=== PATIENT | male | born 1945 | race Hispanic/Latino ===

== ENCOUNTER 2017-08-02 08:27 | Emergency (ER) | payer MEDICARE, OTHER ==
[~2017-08-02] VITALS: Ht 167.6 cm; Wt 93.0 kg
--- OUTSIDE RECORDS SUMMARY | 2017-08-02 08:31 | XMS REPORT ---
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 Allergies, Adverse Reactions, Alerts This patient has no known allergies or adverse reactions. Medications This patient has no known medications. Results Test Description Test Time Test Comments Text Results Atomic Results Result Comments HEMOGLOBIN A1C 2016-11-29 08:20:00 HEMOGLOBIN A1C (BEAKER) (test gbsi=269) 5.4 % 4.3-6.1 CBC W/PLT COUNT & AUTO [id number] 07:43:00* Test Item Value Reference Range Comments WHITE BLOOD CELL COUNT (BEAKER) (test uklo=254) 7.0 K/ L 4.0-10.0 RED BLOOD CELL COUNT (BEAKER) (test bgak=882) 4.69 M/ L 4.20-5.80 HEMOGLOBIN (BEAKER) (test uoix=489) 15.2 GM/DL 13.0-16.8 HEMATOCRIT (BEAKER) (test nyar=607) 44.2 % 40.0-50.0 MEAN CORPUSCULAR VOLUME (BEAKER) (test auiw=943) 94.2 fL 82.0-98.0 MEAN CORPUSCULAR HEMOGLOBIN (BEAKER) (test uuwz=768) 32.3 pg 27.0-33.0 MEAN CORPUSCULAR HEMOGLOBIN CONC (BEAKER) (test xvry=181) 34.3 GM/DL 32.0- 36.0 RED CELL DISTRIBUTION WIDTH (BEAKER) (test yebh=992) 13.9 % 10.3-14.2 PLATELET COUNT (BEAKER) (test gnmg=631) 191 K/CU MM 150-430 MEAN PLATELET VOLUME (BEAKER) (test vwrq=091) 7.7 fL 6.5-10.5 NUCLEATED RED BLOOD CELLS (BEAKER) (test lstp=409) 0 /100 WBC 0-0 NEUTROPHILS RELATIVE PERCENT (BEAKER) (test gkxu=366) 57 % LYMPHOCYTES RELATIVE PERCENT (BEAKER) (test cmom=676) 28 % MONOCYTES RELATIVE PERCENT (BEAKER) (test exyg=459) 8 % EOSINOPHILS RELATIVE PERCENT (BEAKER) (test wlat=902) 6 % BASOPHILS RELATIVE PERCENT (BEAKER) (test njwz=196) 1 % NEUTROPHILS ABSOLUTE COUNT (BEAKER) (test cqlk=162) 3.97 K/ L 1.80-8.00 LYMPHOCYTES ABSOLUTE COUNT (BEAKER) (test zrts=527) 1.99 K/ L 1.48-4.50 MONOCYTES ABSOLUTE COUNT (BEAKER) (test htws=517) 0.58 K/ L 0.00-1.30 EOSINOPHILS ABSOLUTE COUNT (BEAKER) (test fupv=955) 0.39 K/ L 0.00-0.50 BASOPHILS ABSOLUTE COUNT (BEAKER) (test xauf=026) 0.07 K/ L 0.00-0.20 0.00CREATINE KINASE (CK), TOTAL AND [id number] 07:28:00* Test Item Value Reference Range Comments CREATINE KINASE TOTAL (BEAKER) (test wopa=551) 90 U/L 29-200 CREATINE KINASE-MB (BEAKER) (test narm=076) 1.5 ng/mL 0.0-6.6 CREATINE KINASE-MB INDEX (BEAKER) (test batu=864) 1.7 % Effective 04/11/2014: CK-MB Reference Range ChangeNew: 0.0-6.6 Previous: 0.0- 4.9CK-MB Reference Range:<6.7 Normal6.7-10.0 Borderline>10.0 AbnormalBASIC METABOLIC [id number] 07:27:00* Test Item Value Reference Range Comments SODIUM (BEAKER) (test xucq=860) 137 meq/L 136-145 POTASSIUM (BEAKER) (test buon=726) 3.7 meq/L 3.5-5.1 CHLORIDE (BEAKER) (test cjll=079) 107 meq/L 98-107 CO2 (BEAKER) (test dpyj=892) 25 meq/L 22-29 BLOOD UREA NITROGEN (BEAKER) (test wkzr=668) 14 mg/dL 7-21 CREATININE (BEAKER) (test vvxr=230) 0.75 mg/dL 0.57-1.25 GLUCOSE RANDOM (BEAKER) (test tdvo=942) 79 mg/dL 70-105 CALCIUM (BEAKER) (test abrl=799) 8.9 mg/dL 8.4-10.2 EGFR (BEAKER) (test nvcz=2066) mL/min/1.73 sq m INSUFFICIENT CLINICAL DATA TO CALCULATE ESTIMATED GFR. [id number] 07:25:00* Test Item Value Reference Range Comments PHOSPHORUS (BEAKER) (test wmrd=236) 3.1 mg/dL 2.3-4.7 [id number] 07:25:00* Test Item Value Reference Range Comments MAGNESIUM (BEAKER) (test jxdg=120) 2.2 mg/dL 1.6-2.6 LIPID [id number] 07:25:00* Test Item Value Reference Range Comments TRIGLYCERIDES (BEAKER) (test fhje=161) 120 mg/dL CHOLESTEROL (BEAKER) (test chtw=117) 156 mg/dL HDL CHOLESTEROL (BEAKER) (test snvz=672) 38 mg/dL LDL CHOLESTEROL CALCULATED (BEAKER) (test dete=568) 94 mg/dL Triglyceride Reference Range: Low Risk <150 Borderline 150-199 High Risk 200-499 Very High Risk >=500Cholesterol Reference Range: Low Risk <200 Borderline 200-239 High Risk >240HDL Cholesterol Reference Range: Low Risk >=60 High Risk <40LDL Cholesterol Reference Range: Optimal <100 Near Optimal 100-129 Borderline 130-159 High 160-189 Very High >=190 CREATINE KINASE (CK), TOTAL AND [id number] 01:12:00* Test Item Value Reference Range Comments CREATINE KINASE TOTAL (BEAKER) (test xwde=160) 88 U/L 29-200 CREATINE KINASE-MB (BEAKER) (test subn=897) 1.4 ng/mL 0.0-6.6 CREATINE KINASE-MB INDEX (BEAKER) (test qvrc=611) 1.6 % Effective 04/11/2014: CK-MB Reference Range ChangeNew: 0.0-6.6 Previous: 0.0- 4.9CK-MB Reference Range:<6.7 Normal6.7-10.0 Borderline>10.0 AbnormalTROPONIN [id number] 01:12:00* Test Item Value Reference Range Comments TROPONIN I (BEAKER) (test tgst=902) < ng/mL 0.00-0.03 Effective 04/11/2014: Reference Range ChangeNew: 0.00-0.03 Previous 0.00- 0.15Troponin I (TnI) levels must be interpreted in the context of the presenting symptoms and the clinical findings. Elevated TnI levels indicate myocardial damage, but are not specific for ischemic heart disease. Elevated TnI levels are seen in patients with other cardiac conditions (including myocarditis and congestive heart failure), and slight TnI elevations occur in patients with other conditions, including sepsis, renal failure, acidosis, acute neurological disease, and persistent tachyarrhythmia.CREATINE KINASE (CK) , TOTAL AND [id number] 19:27:00* Test Item Value Reference Range Comments CREATINE KINASE TOTAL (MILAKER) (test rxfh=715) 114 U/L 29-200 CREATINE KINASE-MB (BEAKER) (test sczu=728) 1.5 ng/mL 0.0-6.6 CREATINE KINASE-MB INDEX (AYANNA) (test xxru=367) 1.3 % Effective 04/11/2014: CK-MB Reference Range ChangeNew: 0.0-6.6 Previous: 0.0- 4.9CK-MB Reference Range:<6.7 Normal6.7-10.0 Borderline>10.0 AbnormalTROPONIN [id number] 19:27:00* Test Item Value Reference Range Comments TROPONIN I (AYANNA) (test xjfz=109) < ng/mL 0.00-0.03 Effective 04/11/2014: Reference Range ChangeNew: 0.00-0.03 Previous 0.00- 0.15Troponin I (TnI) levels must be interpreted in the context of the presenting symptoms and the clinical findings. Elevated TnI levels indicate myocardial damage, but are not specific for ischemic heart disease. Elevated TnI levels are seen in patients with other cardiac conditions (including myocarditis and congestive heart failure), and slight TnI elevations occur in patients with other conditions, including sepsis, renal failure, acidosis, acute neurological disease, and persistent tachyarrhythmia.CREATINE KINASE (CK) , TOTAL AND [id number] 15:35:00* Test Item Value Reference Range Comments CREATINE KINASE TOTAL (BEAKER) (test asti=606) 95 U/L 29-200 CREATINE KINASE-MB (BEAKER) (test osgf=431) 1.4 ng/mL 0.0-6.6 CREATINE KINASE-MB INDEX (BEAKER) (test dnxx=815) 1.5 % Effective 04/11/2014: CK-MB Reference Range ChangeNew: 0.0-6.6 Previous: 0.0- 4.9CK-MB Reference Range:<6.7 Normal6.7-10.0 Borderline>10.0 AbnormalTROPONIN [id number] 15:35:00* Test Item Value Reference Range Comments TROPONIN I (BEAKER) (test wlek=672) < ng/mL 0.00-0.03 Effective 04/11/2014: Reference Range ChangeNew: 0.00-0.03 Previous 0.00- 0.15Troponin I (TnI) levels must be interpreted in the context of the presenting symptoms and the clinical findings. Elevated TnI levels indicate myocardial damage, but are not specific for ischemic heart disease. Elevated TnI levels are seen in patients with other cardiac conditions (including myocarditis and congestive heart failure), and slight TnI elevations occur in patients with other conditions, including sepsis, renal failure, acidosis, acute neurological disease, and persistent tachyarrhythmia.B-TYPE NATRIURETIC FACTOR (BNP)2016-11-28 15:34:00* Test Item Value Reference Range Comments B-TYPE NATRIURETIC PEPTIDE (BEAKER) (test rydb=193) 141 pg/mL 0-100 BASIC METABOLIC [id number] 15:29:00* Test Item Value Reference Range Comments SODIUM (BEAKER) (test efcz=936) 141 meq/L 136-145 POTASSIUM (BEAKER) (test qlgx=342) 4.0 meq/L 3.5-5.1 CHLORIDE (BEAKER) (test wvam=280) 110 meq/L 98-107 CO2 (BEAKER) (test drtw=654) 25 meq/L 22-29 BLOOD UREA NITROGEN (BEAKER) (test qzgp=040) 15 mg/dL 7-21 CREATININE (BEAKER) (test iuxy=198) 0.79 mg/dL 0.57-1.25 GLUCOSE RANDOM (BEAKER) (test pfur=854) 90 mg/dL 70-105 CALCIUM (BEAKER) (test dzmd=424) 9.0 mg/dL 8.4-10.2 EGFR (BEAKER) (test xlvj=6238) mL/min/1.73 sq m INSUFFICIENT CLINICAL DATA TO CALCULATE ESTIMATED GFR. [id number] 15:28:00* Test Item Value Reference Range Comments MAGNESIUM (BEAKER) (test ozzw=089) 2.2 mg/dL 1.6-2.6 CBC W/PLT COUNT & AUTO [id number] 14:43:00* Test Item Value Reference Range Comments WHITE BLOOD CELL COUNT (BEAKER) (test itpa=063) 8.2 K/ L 4.0-10.0 RED BLOOD CELL COUNT (BEAKER) (test zfig=918) 4.50 M/ L 4.20-5.80 HEMOGLOBIN (BEAKER) (test vidi=755) 14.7 GM/DL 13.0-16.8 HEMATOCRIT (BEAKER) (test naox=819) 42.9 % 40.0-50.0 MEAN CORPUSCULAR VOLUME (BEAKER) (test ugqp=175) 95.3 fL 82.0-98.0 MEAN CORPUSCULAR HEMOGLOBIN (BEAKER) (test fzrc=237) 32.6 pg 27.0-33.0 MEAN CORPUSCULAR HEMOGLOBIN CONC (BEAKER) (test znmp=103) 34.3 GM/DL 32.0- 36.0 RED CELL DISTRIBUTION WIDTH (BEAKER) (test uzfy=271) 12.3 % 10.3-14.2 PLATELET COUNT (BEAKER) (test lbws=131) 204 K/CU MM 150-430 MEAN PLATELET VOLUME (BEAKER) (test qqnx=044) 7.4 fL 6.5-10.5 NUCLEATED RED BLOOD CELLS (BEAKER) (test eqjs=194) 0 /100 WBC 0-0 NEUTROPHILS RELATIVE PERCENT (BEAKER) (test fmsc=361) 58 % LYMPHOCYTES RELATIVE PERCENT (BEAKER) (test jywm=379) 29 % MONOCYTES RELATIVE PERCENT (BEAKER) (test cydg=472) 9 % EOSINOPHILS RELATIVE PERCENT (BEAKER) (test buzd=372) 4 % BASOPHILS RELATIVE PERCENT (BEAKER) (test rlxi=736) 0 % NEUTROPHILS ABSOLUTE COUNT (BEAKER) (test molq=572) 4.72 K/ L 1.80-8.00 LYMPHOCYTES ABSOLUTE COUNT (BEAKER) (test fcna=184) 2.39 K/ L 1.48-4.50 MONOCYTES ABSOLUTE COUNT (BEAKER) (test qndk=294) 0.70 K/ L 0.00-1.30 EOSINOPHILS ABSOLUTE COUNT (BEAKER) (test xgvt=717) 0.32 K/ L 0.00-0.50 BASOPHILS ABSOLUTE COUNT (BEAKER) (test rubz=774) 0.04 K/ L 0.00-0.20 0.00
[2017-08-02] MEDS ORDERED: ACETAMINOPHEN 325 MG TAB PO ONE (08:45)
[2017-08-02] MEDS ORDERED: ALBUTEROL/IPRATROPIUM 3 ML NEB NEB ONE (08:45)
--- NOTE | 2017-08-02 09:30 | Diagnostic Imaging Report ---
EXAMINATION: CHEST 2 VIEWS INDICATION: Fever. Rule out pneumonia. COMPARISON: 03/24/2015. FINDINGS: TUBES and LINES: None. LUNGS: Bibasilar subsegmental atelectasis. There is no evidence of pneumonia or pulmonary edema. PLEURA: No pleural effusion or pneumothorax. HEART AND MEDIASTINUM: The the cardiac silhouette is normal in size. Tortuous ectatic ascending aorta/aortic arch.. BONES AND SOFT TISSUES: No acute osseous lesion. UPPER ABDOMEN: No free air under the diaphragm. IMPRESSION: Bibasilar subsegmental atelectasis. No consolidative pneumonia. Signed by: Dr. Wally Larsen M.D. on 08/02/2017 9:27 AM
[2017-08-02 09:32] LABS: BASOPHILS # (AUTO) 0.1 (0.0-0.1); BASOPHILS % 0.5 % (0.0-1.0); EOSINOPHILS # (AUTO) 0.4 (0.0-0.4); EOSINOPHILS % 2.9 % (0.0-6.0); HEMATOCRIT 37.1 % (38.2-49.6); HEMOGLOBIN 12.8 g/dL (14.0-18.0); LYMPHOCYTES % 8.6 % (18.0-39.1); MEAN CORPUSCULAR HEMOGLOBIN 30.6 pg (28-32); MEAN CORPUSCULAR HGB CONC 34.5 g/dL (31-35); MEAN CORPUSCULAR VOLUME 88.8 fL (81-99); MONOCYTES # (AUTO) 0.8 (0.2-0.8); MONOCYTES % 6.5 % (4.4-11.3); NEUTROPHILS # (AUTO) 9.8 (2.1-6.9); NEUTROPHILS % 80.8 % (38.7-80.0); PLATELET COUNT 179 x10e3/uL (140-360); RED BLOOD COUNT 4.18 x10e6/uL (4.3-5.7); RED CELL DISTRIBUTION WIDTH 13.3 % (11.7-14.4)
[2017-08-02 09:37] LABS: INR 1.15; PROTHROMBIN TIME 13.8 seconds (11.9-14.5)
[2017-08-02 09:38] LABS: PARTIAL THROMBOPLASTIN TIME 32.5 seconds (23.8-35.5)
[2017-08-02 09:47] LABS: ALANINE AMINOTRANSFERASE 24 IU/L (0-55); ALBUMIN 3.9 g/dL (3.5-5.0); ALBUMIN/GLOBULIN RATIO 1.1 (0.8-2.0); ALKALINE PHOSPHATASE 63 IU/L (40-150); ANION GAP 13.5 mmol/L (8-16); BLOOD UREA NITROGEN 16 mg/dL (7-26); BUN/CREATININE RATIO 20 (6-25); CALCIUM 8.7 mg/dL (8.4-10.2); CARBON DIOXIDE 24 mmol/L (22-29); CHLORIDE 105 mmol/L (98-107); CREATINE KINASE 241 IU/L (30-200); CREATININE, SERUM 0.79 mg/dL (0.72-1.25); EST GLOMERULAR FILTRATION RATE > 60 ML/MIN (60-); GLUCOSE 112 mg/dL (74-118); POTASSIUM 3.5 mmol/L (3.5-5.1); SODIUM 139 mmol/L (136-145)
[2017-08-02] MEDS ORDERED: CEFTRIAXONE SOD 1 GM VIAL IV ONE (10:00)
[2017-08-02] MEDS ORDERED: SODIUM CHLORIDE 0.9% 1000ML 1,000 ML IV SCH (10:00)
[2017-08-02] MEDS ORDERED: LEVOFLOXACIN 500 MG TAB PO ONE (10:00)
== END 2017-08-02 11:20 | disposition home or self-care (01) ==
LOC: ER 08:27
DX: R50.9 Fever, unspecified (principal); R05 Cough; J11.1 Influenza due to unidentified influenza virus with other respiratory manifestations
CPT/HCPCS: 36415; 71046; 80053; 82550; 82553; 83605; 84484; 85025; 85610; 85730; 87040; 87400; 94640; 99284; J0696; J7030